=== PATIENT | male | born 1950 | race Caucasian/White ===

== ENCOUNTER 2016-08-28 06:30 | Inpatient (IN) | payer MEDICARE ==
--- NOTE | ~2016-08-28 | DS ---
Discharge Summary [facility] [address] [place]. [address] NAME: ALEXANDRA MODI : 48 STATUS : DIS IN PAT#: [id number] AGE: 65 ADM/REG DATE : 08/28/16 MR#: [id number] REPORT SERV DATE: 09/01/16 DICTATED BY: ALISA CHAO DATE: 08/29/16 REPORT STATUS : Draft TRANSCRIBED BY: MODL DATE: 08/29/16 ADMISSION DATE: 08/28/2016 DISCHARGE DATE: 08/29/2016 DISCHARGE DIAGNOSES: 1. Atrial fibrillation which is rate controlled and oral anticoagulation was elected to be a Coumadin use. 2. Acute on chronic heart failure, systolic and left ventricle and right ventricular failure on presentation and on admission improved. 3. Gym-FZ-wcbrjwdgo myocardial infarction, status post PCI with a bare metal stent. 4. Tobacco abuse. 5. History of alcohol use as well. HISTORY OF PRESENT ILLNESS: This is a 65-year-old male patient who was transferred from [facility] to get cardiac catheterization after he was found to have a mild systolic dysfunction with a swc-NL-iogbrswnh WI. Please see dictated H and P. HOSPITAL COURSE: He was treated with IV diuretics over at [facility] and transferred to the [facility] to get cardiac catheterization. Initially, he was thought to have pneumonia. The patient was on IV antibiotics. His antigen and sputum were negative and his procalcitonin was also negative as well and along with the treatment, he has gotten better. There is no further evidence of infection. The patient's antibiotics were discontinued. He had a cardiac catheterization which showed a severe flow limiting disease. The patient had a bare metal stent done by Dr. Rocha, and anticoagulation was elected to be Coumadin and Plavix and low-dose aspirin with condition for sry-CD-xkqpkryqf WI with atrial fibrillation. Overall, had improvement, does not require any oxygen use. The patient has been stable and tolerated well. The patient will be discharged to home with the following medications: DISCHARGE MEDICATIONS: 1. Aspirin 81 mg once a day. 2. Lipitor 40 mg once at nighttime. 3. Plavix 75 mg once a day. 4. Cardizem CD 180 mg once a day. 5. Toprol-XL 25 mg once a day. 6. Potassium 20 mEq Wednesday, Wednesday, Wednesday. 7. Furosemide 40 mg Wednesday, Wednesday, and Wednesday. 8. Coumadin 5 mg once a day. DISPOSITION: The patient is discharged to home in stable condition. Had emphasized discussion regarding medical treatment and tobacco cessation. The patient will be followed by [facility]. Discharge Summary [address] [place]. [address] NAME: ALEXANDRA MODI : 48 STATUS : DIS IN PAT#: [id number] AGE: 65 ADM/REG DATE : 08/28/16 MR#: [id number] REPORT SERV DATE: 09/01/16 DICTATED BY: ALISA CHAO DATE: 08/29/16 REPORT STATUS : Draft TRANSCRIBED BY: BAN DATE: 08/29/16 TIME SPENT: More than 30 minutes on discharge coordination and patient education. DICTATED BY: Marcie Mckinley/BAN Alisa Chao M.D. / [id number] CC: Alisa Chao M.D.
[~2016-08-28 06:30] MED LIST: VASOTEC10 PO
[2016-08-29 03:26] LABS: BASOPHILS 0.1 %; BASOPHILS ABSOLUTE 0.01 10/3/uL (0.0-0.16); EOSINOPHILS 2.9 %; EOSINOPHILS ABSOLUTE 0.23 10/3/uL (0.0-0.53); HEMOGLOBIN 16.5 g/dL (13.6-17.8); IMMATURE GRANULOCYTES 0.5 %; IMMATURE GRANULOCYTES ABSOLUTE 0.04 10/3/uL (0.0-0.11); LYMPHOCYTES 23.1 %; MEAN CORPUS HGB CONC 34.4 g/dL (32.0-36.0); MEAN CORPUSCULAR HEMOGLOB 31.8 pg (26.0-34.0); MEAN CORPUSCULAR VOLUME 92.5 fL (80-100); MEAN PLATELET VOLUME 11.9 fL (9.2-13.0); MONOCYTES 10.3 %; NEUTROPHILS 63.1 %; NEUTROPHILS ABSOLUTE 4.92 10/3/uL (2.02-8.40); PLATELET COUNT 183 10/3/uL (150-400); RBC DISTRIBUTION WIDTH 14.6 % (12.0-16.0); RED CELL COUNT 5.19 10/6/uL (4.7-6.1); WHITE BLOOD CELLS 7.8 10/3/uL (4.5-10.5)
[2016-08-29 03:32] LABS: MANUAL DIFF NO %
[2016-08-29 03:39] LABS: ALBUMIN 3.1 G/DL (3.5-5.0); BUN (BLOOD UREA NITROGEN) 26 MG/DL (6-23); CALCIUM, SERUM 8.4 MG/DL (8.5-10.4); CHLORIDE, SERUM 105 MMOL/L (96-112); CHOL/HDL RATIO(NOT ORDER) 1.9 (0-5); CHOLESTEROL 85 MG/DL (< 200); CO2 (CARBON DIOXIDE) 29 MMOL/L (24-34); CREATININE 1.11 MG/DL (0.70-1.30); GFR AFRICAN AMERICAN 80 ML/MIN (>=60); GFR NON AFRICAN AMERICAN 69 ML/MIN (>=60); GLUCOSE, SERUM 97 MG/DL (60-99); HDL CHOLESTEROL 45 MG/DL (> 39); LDL CHOLESTEROL 30 MG/DL (< 130); NON-HDL CHOLESTEROL 40 MG/DL (< 160); PHOSPHORUS, SERUM 2.3 MG/DL (2.5-4.5); POTASSIUM, SERUM 4.4 MMOL/L (3.5-5.3); SODIUM, SERUM 139 MMOL/L (135-148); TRIGLYCERIDE 52 MG/DL (< 150)
[2016-08-29 06:20] LABS: INTERNATIONAL NORMAL RATI 1.4 UNITS (-); PROTIME (NOT ORD) 16.7 SEC (12.0-14.5)
[2016-08-29] MEDS ORDERED: KDUR20 PO (10:46)
[2016-08-29] MEDS ORDERED: L40 PO (10:46)
[2016-08-29] MEDS ORDERED: LIPITOR40 PO (10:47)
[2016-08-29] MEDS ORDERED: PLAVIX PO (10:47)
[2016-08-29] MEDS ORDERED: TOPXL25 PO (10:48)
[2016-08-29] MEDS ORDERED: NTG150 SL (10:48)
[2016-08-29] MEDS ORDERED: CARDCD180 PO (10:48)
[2016-08-29] MEDS ORDERED: JANTOVEN5 MG PO (10:49)
[2016-08-29] MEDS ORDERED: ASAB PO (12:27)
[2016-10-30] MEDS ORDERED: JANTOVEN4 MG PO (15:33)
[2016-10-30] MEDS ORDERED: GLUCPH PO (15:35)
== END 2016-08-29 13:02 | disposition home or self-care (01) | DRG 248 ==
LOC: CORLMH 06:30 → SSU1 06:47
PROVIDERS: Internal Medicine; Internal Medicine Cardiovascular Disease
PROC: 02703DZ Dilation of Coronary Artery, One Artery with Intraluminal Device, Percutaneous Approach (ICD-10-PCS; principal; 2016-08-28)
PROC: 4A023N7 Measurement of Cardiac Sampling and Pressure, Left Heart, Percutaneous Approach (ICD-10-PCS; 2016-08-28)
PROC: B2151ZZ Fluoroscopy of Left Heart using Low Osmolar Contrast (ICD-10-PCS; 2016-08-28)
PROC: B2111ZZ Fluoroscopy of Multiple Coronary Arteries using Low Osmolar Contrast (ICD-10-PCS; 2016-08-28)
DX: I21.4 Non-ST elevation (NSTEMI) myocardial infarction (principal); I50.23 Acute on chronic systolic (congestive) heart failure; I48.1 Persistent atrial fibrillation; I36.1 Nonrheumatic tricuspid (valve) insufficiency; J44.9 Chronic obstructive pulmonary disease, unspecified; I25.10 Atherosclerotic heart disease of native coronary artery without angina pectoris; E78.5 Hyperlipidemia, unspecified; I10 Essential (primary) hypertension; F17.210 Nicotine dependence, cigarettes, uncomplicated; F10.21 Alcohol dependence, in remission; I34.0 Nonrheumatic mitral (valve) insufficiency
CPT/HCPCS: 71010; 71020; 80048; 80061; 80069; 82550; 83036; 83735; 83880; 84145; 84443; 84484; 85025; 85347; 85610; 85730; 87040; 87070; 87205; 87449; 92928; 93005; 93306; 93458; 96365; 96375; 99152; 99153; 99291; A9270-GY; C1725; C1769; C1876; C1887; C1894; J1160; J1940; J2250; J2370; J3010; Q9967